=== PATIENT | male | born 1950 | race Two or more races ===

== ENCOUNTER 2016-10-20 10:31 | Inpatient (IN) | payer BC ==
[~2016-10-20] VITALS: Ht 170.2 cm; Wt 72.6 kg
[2016-10-20 11:24] LABS: Basophils # (auto) 0 uL; Eosinophils # (auto) 0 uL; Eosinophils % (auto) 0.2 % (0.0-7.0); Hematocrit 45.7 % (41.0-53.0); Hemoglobin 15.3 g/dL (13.5-17.5); Lymphocytes # (auto) 0.5 uL; Lymphocytes % (auto) 5.6 % (10.0-50.0); Mean Corpuscular Hemoglobin 32.6 pg (28.0-32.0); Mean Corpuscular Hgb Conc. 33.5 g/dL (32.0-36.0); Mean Corpuscular Volume 97.3 fL (80.0-100.0); Mean Platelet Volume 7.9 fL (7.4-10.4); Monocytes # (auto) 0.4 uL; Neutrophils # (auto) 7.7 uL; Neutrophils % (auto) 89.2 % (37.0-80.0); Platelet Count (auto) 228 10^3/uL (140-450); Red Cell Distribution Width 13.9 % (11.6-16.0); White Blood Cell 8.6 10^3/uL (4.4-10.8)
[2016-10-20] MEDS ORDERED: FERR1TAB36 PO (11:26)
[2016-10-20] MEDS ORDERED: SODIUM CHLORIDE 0.9% 1,000 ML IVB ONE (11:34)
[2016-10-20 11:51] LABS: Albumin 4.3 g/dL (3.4-5.0); Alkaline Phosphatase 202 U/L (45-117); Anion Gap 14 (5-15); Aspartate Aminotransferase 1494 U/L (15-37); BUN/Creatinine Ratio 21.6; Bilirubin, Total 1.7 mg/dL (0.2-1.0); Blood Urea Nitrogen 27 mg/dL (7-18); Calcium 9.5 mg/dL (8.5-10.1); Carbon Dioxide 25 mmol/L (21-32); Chloride 103 mmol/L (98-107); GFR African American 75 mL/min; GFR Non-African American 62 mL/min; Glucose 112 mg/dL (74-106); Magnesium 2.4 mg/dL (1.6-2.6); Sodium 142 mmol/L (136-145); Total Protein 8.4 g/dL (6.4-8.2)
[2016-10-20] MEDS ORDERED: ONDANSETRON HCL 4 MG/2 ML VIAL IV ONE (15:00)
[2016-10-20] MEDS ORDERED: MORPHINE SULF INJ 2 MG/ML SYRINGE 1ML IV ONE (15:00)
[2016-10-20] MEDS ORDERED: MORPHINE SULFATE 4 MG/ML SYRG IV PRN (15:15)
[2016-10-20] MEDS ORDERED: cefTRIAXone 1GM/50ML D5W 50 ML IV ONE (15:15)
[2016-10-20] MEDS ORDERED: LORazepam 0.5 MG TAB PO PRN (15:15)
[2016-10-20] MEDS ORDERED: PROMETHAZINE HCL 25 MG/ML 1ML IV PRN (15:15)
[2016-10-20] MEDS ORDERED: TEMAZEPAM 15 MG CAP PO PRN (15:15)
[2016-10-20] MEDS ORDERED: NITROGLYCERIN 0.4 MG SL TAB SL PRN (15:15)
[2016-10-20] MEDS ORDERED: MORPHINE SULF INJ 2 MG/ML SYRINGE 1ML IV PRN (15:15)
[2016-10-20 15:19] LABS: Urine Bilirubin Negative (Negative); Urine Blood Negative /uL (Negative); Urine Color Yellow (Yellow); Urine Glucose Normal (Normal); Urine Mucus FEW (None Seen); Urine Nitrite Negative (Negative); Urine RBC 3 /hpf (0 - 3); Urine pH 5.5 (5.0-8.0)
[2016-10-20 15:20] LABS: Urine Ketone 3+ (Negative)
[2016-10-20] MEDS ORDERED: ENOXAPARIN SOD 40 MG/0.4 ML SYRINGE SC ONE (16:00)
[2016-10-20] MEDS: SODIUM CHLORIDE 0.9% 1,000 ML IV SCH (16:06)
[2016-10-20] MEDS: FAMOTIDINE (10MG/ML) 2ML VL IV SCH (16:12)
[2016-10-20 17:19] LABS: INR 1.09 (0.9-1.15); Partial Thromboplastin Time 28.1 sec (22.64-33.71); Prothrombin Time 11.2 sec (9.37-12.3)
[2016-10-20] MEDS: metroNIDAZOLE 500MG/100ML 100 ML IV SCH ×2 (18:19→23:53)
[2016-10-20] MEDS ORDERED: LABETALOL HCL 5 MG/ML 4ML SYRINGE IV PRN (19:00)
[2016-10-20] MEDS: MORPHINE SULF INJ 2 MG/ML SYRINGE 1ML IV PRN (20:04)
[2016-10-20 22:00] VITALS: BP 128/51
[2016-10-21] VITALS (7 sets, daily range): BP systolic 120–145; BP diastolic 77–90
[2016-10-21] MEDS: FAMOTIDINE (10MG/ML) 2ML VL IV SCH ×2 (03:15→15:15)
[2016-10-21] MEDS: MORPHINE SULF INJ 2 MG/ML SYRINGE 1ML IV PRN (04:55)
[2016-10-21] MEDS: metroNIDAZOLE 500MG/100ML 100 ML IV SCH ×4 (05:54→23:44)
[2016-10-21] MEDS: SODIUM CHLORIDE 0.9% 1,000 ML IV SCH ×3 (05:54→21:52)
[2016-10-21 07:05] LABS: Basophils # (auto) 0 uL; Basophils % (auto) 0.3 % (0.0-2.0); Eosinophils # (auto) 0.1 uL; Hematocrit 40.2 % (41.0-53.0); Hemoglobin 13.7 g/dL (13.5-17.5); Lymphocytes # (auto) 0.8 uL; Lymphocytes % (auto) 12.4 % (10.0-50.0); Mean Corpuscular Hemoglobin 33.1 pg (28.0-32.0); Mean Corpuscular Hgb Conc. 34.1 g/dL (32.0-36.0); Mean Platelet Volume 8.5 fL (7.4-10.4); Monocytes # (auto) 0.7 uL; Monocytes % (auto) 10.8 % (0.0-12.0); Neutrophils # (auto) 5.1 uL; Neutrophils % (auto) 75.5 % (37.0-80.0); Platelet Count (auto) 199 10^3/uL (140-450); Red Cell Distribution Width 13.8 % (11.6-16.0); White Blood Cell 6.7 10^3/uL (4.4-10.8)
[2016-10-21 07:57] LABS: Albumin 3.3 g/dL (3.4-5.0); BUN/Creatinine Ratio 22.1; Calcium 8.2 mg/dL (8.5-10.1); Potassium 3.8 mmol/L (3.5-5.1)
[2016-10-21 08:04] LABS: Bilirubin, Total 4.4 mg/dL (0.2-1.0); Total Protein 6.8 g/dL (6.4-8.2)
[2016-10-21] MEDS: cefTRIAXone 1GM/50ML D5W 50 ML IV SCH (08:45)
[2016-10-21] MEDS: ENOXAPARIN SOD 40 MG/0.4 ML SYRINGE SC SCH (10:37)
[2016-10-21] MEDS ORDERED: QUET25TA46 (13:46)
[2016-10-21] MEDS ORDERED: SIMV-13 (13:46)
[2016-10-21] MEDS ORDERED: DONE5TAB28 (13:46)
[2016-10-21] MEDS ORDERED: ACYC800T88 (13:46)
[2016-10-21] MEDS ORDERED: ASPI81CH43 GT (13:48)
[2016-10-21] MEDS ORDERED: MULT-569 PO (13:48)
[2016-10-21] MEDS ORDERED: COEN400C8 OR (13:48)
[2016-10-22] MEDS: FAMOTIDINE (10MG/ML) 2ML VL IV SCH (03:15)
[2016-10-22 05:00] VITALS: BP 119/80
[2016-10-22] MEDS: metroNIDAZOLE 500MG/100ML 100 ML IV SCH ×2 (05:56→12:58)
[2016-10-22 07:21] LABS: Basophils # (auto) 0 uL; Basophils % (auto) 0.4 % (0.0-2.0); Eosinophils # (auto) 0.2 uL; Eosinophils % (auto) 2.7 % (0.0-7.0); Hematocrit 38.5 % (41.0-53.0); Lymphocytes # (auto) 0.9 uL; Lymphocytes % (auto) 14.6 % (10.0-50.0); Mean Corpuscular Hemoglobin 32.9 pg (28.0-32.0); Mean Corpuscular Hgb Conc. 33.8 g/dL (32.0-36.0); Mean Corpuscular Volume 97.5 fL (80.0-100.0); Mean Platelet Volume 7.8 fL (7.4-10.4); Monocytes # (auto) 0.5 uL; Monocytes % (auto) 8.3 % (0.0-12.0); Neutrophils # (auto) 4.5 uL; Platelet Count (auto) 193 10^3/uL (140-450); Red Cell Distribution Width 14.1 % (11.6-16.0); White Blood Cell 6.1 10^3/uL (4.4-10.8)
[2016-10-22 07:36] LABS: INR 1.13 (0.9-1.15); Prothrombin Time 11.6 sec (9.37-12.3)
[2016-10-22 08:00] VITALS: BP 125/87
[2016-10-22 08:13] LABS: Albumin 3.1 g/dL (3.4-5.0); BUN/Creatinine Ratio 18.9; Bilirubin, Total 1.6 mg/dL (0.2-1.0); Calcium 8.7 mg/dL (8.5-10.1); Magnesium 2.5 mg/dL (1.6-2.6); Potassium 4.2 mmol/L (3.5-5.1); Total Protein 6.5 g/dL (6.4-8.2)
[2016-10-22 09:00] VITALS: BP 125/87
[2016-10-22] MEDS: cefTRIAXone 1GM/50ML D5W 50 ML IV SCH (10:03)
[2016-10-22] MEDS: ENOXAPARIN SOD 40 MG/0.4 ML SYRINGE SC SCH (10:03)
[2016-10-22] MEDS: SODIUM CHLORIDE 0.9% 1,000 ML IV SCH (10:03)
[2016-10-22] MEDS ORDERED: LABETALOL HCL 5 MG/ML 4ML SYRINGE IV PRN (11:15)
[2016-10-22 12:27] LABS: Hepatitis B Surface Antibody Positive
== END 2016-10-22 14:05 | disposition left against medical advice (07) | DRG 444 ==
LOC: ER 10:35 → TELE 10:36 → TELE-CENTR 18:47 → CENTRAL 10-22 03:19
PROVIDERS: ADMIT Internal Medicine; ATTEND Internal Medicine
DX: K81.0 Acute cholecystitis (principal); K72.00 Acute and subacute hepatic failure without coma; E78.5 Hyperlipidemia, unspecified; F02.80 Dementia in other diseases classified elsewhere, unspecified severity, without behavioral disturbance, psychotic disturbance, mood disturbance, and anxiety; G30.9 Alzheimer's disease, unspecified; I10 Essential (primary) hypertension; K40.20 Bilateral inguinal hernia, without obstruction or gangrene, not specified as recurrent; Z53.21 Procedure and treatment not carried out due to patient leaving prior to being seen by health care provider; K44.9 Diaphragmatic hernia without obstruction or gangrene; K70.9 Alcoholic liver disease, unspecified; K57.30 Diverticulosis of large intestine without perforation or abscess without bleeding; N28.1 Cyst of kidney, acquired; N40.0 Benign prostatic hyperplasia without lower urinary tract symptoms; Z82.49 Family history of ischemic heart disease and other diseases of the circulatory system; Z79.899 Other long term (current) drug therapy
CPT/HCPCS: 36415; 71010; 74176; 74181; 76705; 80053; 80061; 81001; 82150; 83690; 83735; 84484; 85025; 85610; 85652; 85730; 86141; 86704; 86706; 86708; 86803; 87340; 93005; 94761; 96361; 96365; 96372; 96375; J0696; J2405; J3490